=== PATIENT | female | born 1975 | race Caucasian/White ===

== ENCOUNTER 2017-10-04 05:57 | Inpatient (IN) | payer OTHER, SELFPAY ==
[2017-10-04] MEDS ORDERED: traZODone 50 MG TAB PO (07:45)
[2017-10-04] MEDS ORDERED: ACETAMINOPHEN TAB 650MG DOSE (2X325MG) PO (07:45)
[2017-10-04] MEDS ORDERED: MAALOX 30 ML SUSP *UDC PO (07:45)
[2017-10-04] MEDS ORDERED: MOM 30ML SUSPENSION UDC PO (07:45)
[2017-10-04] MEDS: FLUoxetine 20 MG CAP PO (10:40)
[2017-10-05] MEDS: FLUoxetine 20 MG CAP PO (08:02)
[2017-10-05] MEDS ORDERED: LORazepam 1 MG TAB PO (11:30)
[2017-10-06 06:33] LABS: HEMATOCRIT 39.9 % (36.0-47.0); HEMOGLOBIN 13.1 g/dl (12.0-16.0); MEAN CORPUSCULAR HEMOGLOBIN 28.4 pg (27.0-33.0); MEAN CORPUSCULAR HGB CONC 32.8 g/dl (32.0-36.5); MEAN CORPUSCULAR VOLUME 86.6 fl (80.0-96.0); PLATELET COUNT, AUTOMATED 267 10^3/uL (150-450); RED BLOOD COUNT 4.61 10^6/uL (4.00-5.40); RED CELL DISTRIBUTION WIDTH 13.7 % (11.5-14.5); WHITE BLOOD COUNT 9.8 10^3/uL (4.0-10.0)
[2017-10-06] MEDS: FLUoxetine 20 MG CAP PO (08:03)
[2017-10-07] MEDS: FLUoxetine 20 MG CAP PO (09:13)
== END 2017-10-07 11:18 | disposition home or self-care (01) | DRG 885 ==
LOC: M ED 05:57 → M ED INP 07:33 → M PSY 09:43
DX: F33.0 Major depressive disorder, recurrent, mild (principal); Z63.5 Disruption of family by separation and divorce; Z91.5 Personal history of self-harm; Z91.411 Personal history of adult psychological abuse; Z79.899 Other long term (current) drug therapy; Z81.8 Family history of other mental and behavioral disorders